=== PATIENT | male | born 1955 | race African-American/Black ===

== ENCOUNTER 2022-04-19 11:05 | Emergency (ER) | payer OTHER, BC ==
[2022-04-19 11:12] VITALS: BMI 36.4
[2022-04-19 13:54] LABS: BASO % 0.8 % (0-2.0); HEMATOCRIT 39.5 % (35.4-49); LYMPH % 22.7 % (8-40); MCHC 32.8 g/dl (32.0-35.9); MEAN CELL VOLUME 85.2 fl (80-96); MONO % 11.3 % (3.8-10.2); NEUT % 63.2 % (42.8-82.8); PLATELET COUNT 203 10^3/uL (134-434); RBC 4.64 M/mm3 (4.00-5.60); RDW 14.6 % (11.9-15.9)
[2022-04-19 13:57] LABS: EPI CELLS 9 /uL (0-25.1); HYALINE CASTS 10 /uL (0-3.1); PH,URINE 5.5 (5.0-8.0); URINE APPEARANCE CLEAR; URINE BACTERIA 264 /uL (0-1359); URINE BILIRUBIN NEGATIVE (NEGATIVE); URINE COLOR YELLOW; URINE GLUCOSE (UA) NEGATIVE (NEGATIVE); URINE KETONE TRACE (NEGATIVE); URINE LEUK ESTERASE 2+ (NEGATIVE); URINE NITRITE NEGATIVE (NEGATIVE); URINE PROTEIN 1+ (NEGATIVE); URINE RBC 8 /uL (0-23.9); URINE UROBILINOGEN 0.2 mg/dL (0.2-1.0); URINE WBC 338 /uL (0-25.8)
[2022-04-19 14:14] LABS: ALBUMIN 3.5 g/dl (3.4-5.0); BLOOD UREA NITROGEN 11.6 mg/dL (7-18)
[2022-04-19 14:17] LABS: CREATININE 0.9 mg/dL (0.55-1.3)
[2022-04-19 14:19] LABS: BILIRUBIN,TOTAL 0.4 mg/dL (0.2-1); TOT PROT 8.3 g/dl (6.4-8.2)
[2022-04-19] MEDS ORDERED: CEFTRIAXONE 1,000 MG in DEXTROSE 5%-WATER - 50 ML IVPB ONE (14:26)
[2022-04-19] MEDS ORDERED: CEFTRIAXONE 1 GM/50 ML BAG ONE (14:36)
[2022-04-19 14:56] VITALS: BP 110/80; PULSE 88; RESP 16; TEMP 98.3
[2022-04-19] MEDS ORDERED: CEFPODOXIME PROXETIL 100 MG TABLET PO ONE (15:00)
== END 2022-04-19 14:56 | disposition home or self-care (01) ==
LOC: JER 11:05
DX: N39.0 Urinary tract infection, site not specified (principal)
CPT/HCPCS: 36415; 80053; 81003; 85025; 87040; 87086; 99284-25; C9803-CS; U0003; U0005

== ENCOUNTER 2023-06-15 15:13 | Observation (INO) | payer BC ==
[2023-06-15 15:24] VITALS: BMI 37.1
[2023-06-15 16:50] LABS: BASO % 1.1 % (0-2.0); EOS % 4.2 % (0-4.5); HEMATOCRIT 37.6 % (35.4-49); HEMOGLOBIN 12.7 GM/dL (11.7-16.9); LYMPH % 29.8 % (8-40); MCH 28.4 pg (25.7-33.7); MCHC 33.7 g/dl (32.0-35.9); MEAN CELL VOLUME 84.3 fl (80-96); MEAN PLT VOLUME 7.9 fl (7.5-11.1); MONO % 16.3 % (3.8-10.2); NEUT % 48.6 % (42.8-82.8); PLATELET COUNT 213 10^3/uL (134-434); RBC 4.46 M/mm3 (4.00-5.60); RDW 13.9 % (11.9-15.9); WHITE BLOOD COUNT 5.2 K/mm3 (4.0-10.0)
[2023-06-15 17:19] LABS: CALCIUM 8.7 mg/dL (8.5-10.1)
[2023-06-15 17:20] LABS: ALBUMIN 3.6 g/dl (3.4-5.0); BLOOD UREA NITROGEN 13.4 mg/dL (7-18)
[2023-06-15 17:23] LABS: CREATININE 1.1 mg/dL (0.55-1.3)
[2023-06-15 17:24] LABS: BILIRUBIN,TOTAL 0.7 mg/dL (0.2-1); TOT PROT 8.2 g/dl (6.4-8.2)
[2023-06-15] MEDS ORDERED: ACETAMINOPHEN 325 MG TABLET (FP) PO PRN (20:29)
[2023-06-15] MEDS ORDERED: DOCUSATE SODIUM 100 MG CAPSULE (FP) PO PRN (20:29)
[2023-06-15] MEDS ORDERED: SODIUM CHLORIDE 500 ML IV STA (20:29)
[2023-06-16] MEDS ORDERED: LORATADINE 10 MG TABLET PO PRN (03:57)
[2023-06-16] MEDS ORDERED: TAMSULOSIN HCL 0.4 MG CAP ONE (07:40)
[2023-06-16] MEDS ORDERED: TAMSULOSIN HCL 0.4 MG CAP PO SCH (08:30)
[2023-06-16 08:55] LABS: BASO % 0.9 % (0-2.0); EOS % 4.7 % (0-4.5); HEMOGLOBIN 12.4 GM/dL (11.7-16.9); MCHC 32.6 g/dl (32.0-35.9); MEAN CELL VOLUME 85.7 fl (80-96); MEAN PLT VOLUME 8.5 fl (7.5-11.1); MONO % 15.3 % (3.8-10.2); NEUT % 53.1 % (42.8-82.8); PLATELET COUNT 221 10^3/uL (134-434); RBC 4.44 M/mm3 (4.00-5.60); RDW 14.1 % (11.9-15.9); WHITE BLOOD COUNT 3.8 K/mm3 (4.0-10.0)
[2023-06-16 09:19] LABS: POTASSIUM 4.3 mmol/L (3.5-5.1)
[2023-06-16 09:28] LABS: BLOOD UREA NITROGEN 11.5 mg/dL (7-18); CALCIUM 8.7 mg/dL (8.5-10.1)
[2023-06-16 09:32] LABS: CREATININE 0.9 mg/dL (0.55-1.3); PHOSPHOROUS 3.5 mg/dL (2.5-4.9)
[2023-06-16 09:41] LABS: CHOLESTEROL 225 mg/dL (50-200); LDL CHOLESTEROL (ONLY SJRH) 156 mg/dL (5-100)
[2023-06-16 09:44] LABS: HDL CHOLESTEROL 41 mg/dL (40-60)
[2023-06-16] MEDS ORDERED: MELATONIN 5 MG TABLETS PO PRN (10:39)
[2023-06-16] MEDS ORDERED: guaiFENesin/D-METHORPHAN HB 10 ML UNIT-DOSE CUPS PO PRN (10:39)
[2023-06-16] MEDS ORDERED: BENZOCAINE/MENTHOL 1 EACH LOZENGE MM PRN (12:04)
[2023-06-16] MEDS ORDERED: FLUTICASONE PROP 0.05% 16 GM NASAL SPRAY NS SCH (13:00)
[2023-06-16 15:33] VITALS: BP 135/75; PULSE 68; RESP 17; TEMP 98
[2023-06-16] MEDS ORDERED: ATORVASTATIN CA 20 MG TABLET (FP) PO SCH (22:00)
[2023-06-16] MEDS ORDERED: OXYBUTYNIN CHLORIDE 5 MG TABLET PO SCH (22:00)
[2023-06-16] MEDS ORDERED: amLODIPine BESYLATE 5 MG TABLET (FP) PO SCH (22:00)
== END 2023-06-16 16:25 | disposition home or self-care (01) ==
LOC: JER 15:13 → JERBED 18:22
PROVIDERS: ADMIT Internal Medicine; ATTEND Family Medicine
PROC: 3E0337Z Introduction of Electrolytic and Water Balance Substance into Peripheral Vein, Percutaneous Approach (ICD-10-PCS; principal; 2023-06-15)
DX: R07.9 Chest pain, unspecified (principal); E78.5 Hyperlipidemia, unspecified; I10 Essential (primary) hypertension; R20.0 Anesthesia of skin; R29.810 Facial weakness; R06.02 Shortness of breath; K80.20 Calculus of gallbladder without cholecystitis without obstruction; E66.9 Obesity, unspecified; R05.9 Cough, unspecified; R09.81 Nasal congestion; K76.0 Fatty (change of) liver, not elsewhere classified; N40.0 Benign prostatic hyperplasia without lower urinary tract symptoms; N20.0 Calculus of kidney; R10.13 Epigastric pain
CPT/HCPCS: 36415; 70450-TC; 71045-TC-FY; 80048; 80053; 80061; 83735; 84100; 84484; 85025; 93005; 93010; 93306-TC; 96360; 99285-25; G0378